=== PATIENT | male | born 1935 | race Caucasian/White ===

== ENCOUNTER 2017-02-03 20:38 | Emergency (ER) | payer MEDICARE, OTHER ==
[~2017-02-03 20:38] MED LIST: ASA CHILDREN'S81 MG PO; COUMADIN DPS3 MG PO; COZAAR100 MG PO; GUAIFENESIN400 MG PO; HYDROPHILIC410 GM TP; IMDUR DPS30 MG PO; KENALOG 0.1% D454 GM TP; LASIX DPS20 MG PO; LATANOPROST2.5 ML OU; LIPITOR DPS20 MG PO; MICRO-K DPS10 MEQ PO; MULTAQ400 MG PO; NITROSTAT0.4 MG SL; NORVASC DPS10 MG PO; OMEGA-3 DPS1000 MG PO; REFRESH PLUS1 EACH OU; THERA-M1 EACH PO; TRIAMTERENE-HC1 EACH PO; ZEBETA5 M1 PO
--- NOTE | 2017-02-04 06:29 | ER ---
ADMIT: 02/03/2017 RM/LOC: ER [facility] MR#: [id number] [facility] [id number] FRANK SALDANA [address] [place] [address] Emergency Room Report SEX: M AGE: 81 : 1935 DATE: 02/03/2017 The patient is an 81-year-old male with chronic gout, currently on allopurinol 200 mg daily, which he states he has been compliant with, has used colchicine in the past with good result. States he has had a flare for the past 30 days. Intermittent between both feet currently right great toe. Exam remarkable for nontoxic, afebrile male. Exquisitely tender right first MTP. Treated with Toradol 30 mg IM. Colchicine 0.6 mg p.o. and home with colchicine 0.6 mg q.2 hours p.r.n. #30. Continue allopurinol. Follow [facility] or [facility]. Branham this week. Marin Reynaga MD/ ligia JOB #: [id number] CC: Marin Reynaga MD, Attending Physician Imani Perry MD, Family Physician
== END 2017-02-03 23:05 | disposition home or self-care (01) ==
LOC: ER 20:38
DX: M10.9 Gout, unspecified (principal); I10 Essential (primary) hypertension; E11.9 Type 2 diabetes mellitus without complications; Z88.0 Allergy status to penicillin; Z88.1 Allergy status to other antibiotic agents; Z88.8 Allergy status to other drugs, medicaments and biological substances; Z79.01 Long term (current) use of anticoagulants; Z79.82 Long term (current) use of aspirin; Z79.899 Other long term (current) drug therapy